=== PATIENT | female | born 1990 | race Caucasian/White ===

== ENCOUNTER 2020-01-28 15:34 | Emergency (ER) | payer OTHER, MEDICAID ==
[2020-01-28 16:22] VITALS: BP 124/69
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
[2020-01-28] MEDS: KETOROLAC TROMETHAMINE INJ/PF 30 MG/1 ML SDV IM ONE ×2 (16:32→16:42)
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
[2020-01-28] MEDS ORDERED: ONDANSETRON 4 MG TAB.RAPDIS PO ONE (18:26)
== END 2020-01-28 18:30 | disposition home or self-care (01) ==
LOC: ER 15:34
DX: S16.1XXA Strain of muscle, fascia and tendon at neck level, initial encounter (principal); M54.2 Cervicalgia; M54.5 Low back pain; M79.10 Myalgia, unspecified site; V43.63XA Car passenger injured in collision with pick-up truck in traffic accident, initial encounter; Z91.018 Allergy to other foods; Z88.0 Allergy status to penicillin; Z88.8 Allergy status to other drugs, medicaments and biological substances
CPT/HCPCS: 99285; 96372; 72125; S0119; J1885